=== PATIENT | male | born 1995 | race African-American/Black ===

== ENCOUNTER 2017-07-31 15:12 | Emergency (ER) | payer SELFPAY ==
[2017-07-31 15:24] VITALS: BP 161/72
--- NOTE | 2017-07-31 15:49 | ED Physician Documentation ---
Lower Extremity Injury - HISTORIAN Historian: patient - HPI Stated Complaint: L Hip pain Chief Complaint: Lower Extremity Injury (left hip pain) Additional Information: 21 yo male who 4 days ago when he stepped out of bed developed a sudden onset of pain in his left hip. It has been constant since that time. Patient has not noticed any modifying factors that make the pain better or worse. No change with walking laying, movement or other problems. No previous hip problems noted. Onset: days ago (4 days) Where: home Severity: moderate Context: twist (??) Associated Symptoms:: other (grinding sensation at times). denies: tingling, numbness distally, swelling, snapping sensation, popping sensation Modifying Factors:: none - ROS CONST: denies: no problems - PAST HX Past History: none Allergies/Adverse Reactions: Allergies Allergy/AdvReac Type Severity Reaction Status Date / Time No Known Allergies Allergy Verified 07/31/17 15:24 Home Medications: Ambulatory Orders Medication Instructions Recorded NK [NK] 07/31/17 - SOCIAL HX Smoking History: less than 1 pack/day (2 cirgarettes a day) Alcohol Use: occasionally Drug Use: none - FAMILY HX Family History: no significant history - VITAL SIGNS Vital Signs: Vital Signs Temp Pulse Resp BP Pulse Ox 98.4 F 81 19 161/72 98 07/31/17 15:17 07/31/17 15:17 07/31/17 15:17 07/31/17 15:17 07/31/17 15:17 - REVIEWED ASSESSMENTS Nursing Assessment Reviewed: Yes Vitals Reviewed: Yes ED Results Lab/Radiology - Radiology Radiology Impressions: Examination: Plain film hip History: Hip discomfort Comparison exams: None provided Findings: 2 views of the hip demonstrate normal cortical margins. No fracture no dislocation. No soft tissue abnormality. Impression: No acute osseous abnormality. - Orders Orders: ED Orders Category Date Time Status LT HIP 2VIEW COMPLETE [RAD] Routine Exams 07/31/17 Ordered Lower Extremities Injury Phy - Physical Exam General Appearance: no acute distress Hips: right hip: non-tender, normal inspection, normal range of motion, no evidence of injury, left hip: limited range of motion (due to pain), pain, soft tissue tenderness, N/A: ecchymosis (none), swelling (none) Legs: bilateral: non-tender, normal inspection, normal range of motion, no evidence of injury Knees: bilateral: non-tender, normal inspection, normal range of motion, no evidence of injury Gait: limited by pain Neuro/Vascular/Tendon: no vascular compromise, motor nml, sensation nml Neck/Back: nml inspection, non-tender Resp/CVS: chest non-tender, breath sounds nml, heart sounds nml, no resp. distress, lungs clear, reg. rate & rhythm Discharge Clincal Impression: Strain of hip and thigh Referrals: Primary Doctor,No [Primary Care Provider] - 2 Days Additional Instructions: Use a warm compress to the area. Start taking some ibuprofen 200mg tablets. Take 3-4 tablets with food every 8 hours for several days then as needed. If you continue to have pain consider being seen by a physical therapist or see your primary care provider. Condition: Stable Disposition: 01 HOME, SELF-CARE Decision to Admit: NO Date of Decison to Admit: 07/31/17 Decision Time: 16:39
--- NOTE | 2017-07-31 18:46 | Diagnostic Imaging Report ---
YASMIN SOLO~ [facility] [address] [facility] [address] [address] ~ ~ ~ ~ Report Submission Date: Jul 31, 2017 4:31:55 PM [employer] Patient ~ Study Name: MARQUIS Cory VALLES ~ Date: Jul 31, 2017 4:14:38 PM [employer] ~ Modality Type: CR Gender: M ~ Description: PELVIS : 95 ~ Institution: [facility] Physician: YASMIN SOLO ~ ~ ~ Examination: Plain film hip History: Hip discomfort Comparison exams: None provided Findings: 2 views of the hip demonstrate normal cortical margins. No fracture no dislocation. No soft tissue abnormality. Impression: No acute osseous abnormality. ~ Electronically signed on Jul 31, 2017 4:31:55 PM [employer] by: Jitendra [email or web address]
== END 2017-07-31 16:43 | disposition home or self-care (01) ==
LOC: ED 15:12
DX: M25.552 Pain in left hip (principal)
CPT/HCPCS: 99283